=== PATIENT | male | born 1960 | race Caucasian/White ===

== ENCOUNTER 2025-07-23 15:58 | Outpatient (REF) | payer OTHER, SELFPAY ==
--- OUTSIDE RECORDS SUMMARY | 2025-07-23 15:15 | XMS_ITS | Encounter Summary ---
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 I have varsha andrade 10/29/[address] you li ve. Do you have problems with any of the following? None of the above 10/29/2024 Food Insecurity Answer Date Recorded Within the past 12 months, y ou worried that your food would run out before you got money to buy more: Never True 2024 Within the past 12 months,th e food you bought just didn't last and you didn't have enough money to get more: Sometimes True 10/29/2024 Transportation Answer Date Recorded In the past 12 months, has l ack of transportation kept you from medical appts, meetings, work or from getting things needed for daily living? No 10/29/2024 Utilities Answer Date Recorded In the past 12 months, has t he electric, gas, oil or water company threatened to shut off services in your home? No 10/29/2024 Depression Answer Date Recorded Patient Health Questionnaire-2 Score 0 10/29/2024 Internet Access Answer Date Recorded Internet Access Q1 Yes 10/29/2024 Internet Access Q2 Not on file 10/29/2024 Sex and Gender Information Value Date Recorded Sex Assigned at Male 08/07/2022 10:22 AM EDT Legal Sex Male 10:22 AM EDT Gender Identity Male 08/07/2022 10:22 AM EDT Sexual Orientation Straight 08/07/2022 10 :22 AM EDT documented as of this encounter Last Filed Vital Signs Vital Sign Reading Time Taken Comments Blood Pressure 133/80 07/23/2025 3:22 PM EDT Pulse 65 07/23/2025 3:22 PM EDT Temperature - - Respiratory Rate 20 07/23/2025 3:22 PM EDT Oxygen Saturation 98% 07/23/2025 3:22 PM EDT Inhaled Oxygen Concentration - - Weight 59.9 kg (132 lb) 07/23/2025 3:22 PM EDT Height 166.4 cm (5' 5.5 ) 07/23/2025 3:22 PM EDT Body Mass Index 21.63 07/23/2025 3:22 PM EDT documented in this encounter Plan of Treatment Upcoming Encounters Date Type Department Care Team (Late st Contact Info) Description 08/25/2025 11:15 AM EST Office Visit [facility] [address] [place] [address] Moiz Licea MD [address] [place] [address] 09/09/2025 4:00 PM EST Office Visit [facility] [address] [place] [address] Moiz Licea MD [address] [place] [address] Scheduled Orders Name Type Priority Associated Diagnoses Orde r Schedule Cologuard colon cancer screening Lab Routine Screening for colon cancer Expected: 07/23/2025 (Approximate), Expires: 07/23/2026 Hepatitis C Antibody with Reflex to HCV, RNA, Quantitative, Real-Time PCR Lab Routine Alcohol dependence in remission (CMS/HCC) (HCC) Chronic obstructive pulmonary disease, unspecified COPD type (CMS/HCC) (HCC) Primary hypertension Expected: 07/23/2025, Expires: 07/23/2026 HIV-1/2 Antigen and Antibodies, Fourth Generation, with Reflexes Lab Routine Seborrheic dermatitis Expected: 07/23/2025 (Approximate), Expires: 07/23/2026 documented as of this encounter Procedures Procedure Name Priority Date/Time Associated Diagnosis Comments TSH W/REFLEX TO FT4 Routine 07/23/2025 4 :01 PM EDT Alcohol dependence in remission (CMS/HCC) (HCC) Chronic obstructive pulmonary disease, unspecified COPD type (CMS/HCC) (HCC) Primary hypertension CBC WITH AUTO DIFFERENTIAL Routine 07/23/2025 4:01 PM EDT Alcohol dependence in remission (CMS/HCC) (HCC) Chronic obstructive pulmonary disease, unspecified COPD type (CMS/HCC) (HCC) Primary hypertension LIPID PANEL, STANDARD Routine 07/23/2025 4:01 PM EDT Alcohol dependence in remission (CMS/HCC) (HCC) Chronic obstructive pulmonary disease, unspecified COPD type (CMS/HCC) (HCC) Primary hypertension COMPREHENSIVE METABOLIC PANEL Routine 07/23/2025 4:01 PM EDT Alcohol dependence in remission (CMS/HCC) (HCC) Chronic obstructive pulmonary disease, unspecified COPD type (CMS/HCC) (HCC) Primary hypertension documented in this encounter Results * TSH with Reflex to Free T4 (07/23/2025 4:01 PM EDT) TSH reflex Free T4 1.25 0.32 - 4.0 uIU/mL [facility] Blood Venous blood specimen / Unknown 07/23/2025 4:01 PM EDT 07/23/2025 5:32 PM EDT us Moiz Licea MD LAB BLOOD ORDERABLES Final Result Performing Organization Address [facility] Co de Phone Number [facility] [address] [place] [address] [phone] * (ABNORMAL) Lipid Panel, Standard (07/23/2025 4:01 PM EDT) Triglycerides 88 <150 mg/dL [facility] Comment:Desirable Triglyceri de: less than 150 mg/dLBorderline High Triglyceride 150-199 mg/dLHigh Triglyceride: 200-499 mg/dLVery High Triglyceride: greater than or equal to 5OO mg/dL Cholesterol 205(H) <200 mg/dL [facility] Comment:Desirable Cholestero l: less than 200 mg/dLBorderline High Cholesterol: 200-239 mg/dLHigh Cholesterol: greater than 239 mg/dL LDL Cholesterol Calculated 123(H) <100 mg/dL [facility] Comment:Desirable LDL: less than 100 mg/dLNear Optimal/Above Optimal LDL: 110- 129 mg/dLBorderline High LDL: 130-159 mg/dLHigh LDL: 160-189 mg/dLVery High LDL: greater than or equal to 190 mg/dL HDL Cholesterol 65 >40 mg/dL [facility] Comment:Desirable HDL: great er than 40 mg/dL Note: This HDL assay may give artificially low results in patients with liver disease. Blood Venous blood specimen / Unknown 07/23/2025 4:01 PM EDT 07/23/2025 5:32 PM EDT us Moiz Licea MD LAB BLOOD ORDERABLES Final Result Performing Organization Address City/[facility]/ZIP Co de Phone Number [facility] [address] [place] [address] [phone] * (ABNORMAL) Comprehensive Metabolic Panel (07/23/2025 4:01 PM EDT) Sodium 142 135 - 145 mmol/L [facility] Potassium 4.2 3.3 - 5.1 mmol/L [facility] Chloride 111(H) 96 - 108 mmol/L [facility] Carbon Dioxide 24 22 - 29 mmol/L [facility] Anion Gap 11(L) 12 - 20 [facility] Urea Nitrogen (BUN) 20(H) 9 - 16 mg/dL [facility] Creatinine, Serum 1.22 0.5 - 1.4 mg/dL [facility] Estimated Glomerular Filt Rate 60 [facility] Comment:Chronic Kidney Disea se: Estimated GFR < 60 mL/min/[id number] Kidney Disease: Estimated GFR < 15 mL/min/1.73m2 Glucose 77 60 - 115 mg/dL [facility] Calcium 9.1 8.4 - 10.2 mg/dL [facility] Bilirubin, Total 0.3 0.0 - 1.0 mg/dL [facility] Aspartate Amino Transferase 31 5 - 37 U/L [facility] Alanine Aminotransferase 23 0 - 40 U/L [facility] Total Protein 6.7 6.5 - 8.0 g/dL [facility] Albumin Level 4.2 3.5 - 5.0 g/dL [facility] Alkaline Phosphatase 80 39 - 117 U/L [facility] Blood Venous blood specimen / Unknown 07/23/2025 4:01 PM EDT 07/23/2025 5:32 PM EDT us Moiz Licea MD LAB BLOOD ORDERABLES Final Result [facility] [address] [place] [address] [phone] * (ABNORMAL) CBC auto differential (07/23/2025 4:01 PM EDT) Pathologist [facility] White Blood Count 7.8 4.8 - 10.8 X10*3/uL [facility] Red Blood Count 4.42(L) 4.60 - 5.80 X10*6/uL [facility] Hemoglobin 13.6(L) 14.0 - 18.0 g/dl [facility] Hematocrit 40.8(L) 42.0 - 52.0 % [facility] Mean Corpuscular Volume 92.3 80.0 - 98.0 fL [facility] Mean Corpuscular Hemoglobin 30.8 27.0 - 33.0 pg [facility] Mean Corpuscular HGB Conc 33.3 31.0 - 36.0 g/dl [facility] Red Cell Distribution Width 12.7 11.0 - 16.0 % [facility] Platelet Count 226 160 - 400 X10*3/uL [facility] Mean Platelet Volume 10.8 9.4 - 12.4 fL [facility] Neutrophils Percent Auto 58.5 45 - 73 % [facility] Imm Gran Pct Auto 0.3 0.0 - 0.4 % [facility] Lymphocytes Percent Auto 32.4 20 - 40 % [facility] Monocytes Percent Auto 6.9 2 - 11 % [facility] Eosinophils Percent Auto 1.0 0 - 4 % [facility] Basophils Percent Auto 0.9 0 - 2 % [facility] NRBC Pct Auto 0.0 0.0 - 0.2 /100WBC [facility] Neutrophils Absolute Auto 4.6 2.0 - 8.3 x10*3/uL [facility] Imm Gran Abs Auto 0.02 0.00 - 0.03 X10*3/uL [facility] Lymphocytes Absolute Auto 2.5 1.2 - 4.9 X10*3/uL [facility] Monocytes Absolute Auto 0.5 0.1 - 1.2 X10*3/uL [facility] Eosinophils Absolute Auto 0.1 0.0 - 0.4 X10*3/uL [facility] Basophils Absolute Auto 0.1 0.0 - 0.2 X10*3/uL [facility] NRBC Abs Auto 0.000 0.0 - 0.012 X10*3/uL [facility] Blood Venous blood specimen / Unknown 07/23/2025 4:01 PM EDT 07/23/2025 5:32 PM EDT Moiz Licea MD LAB BLOOD ORDERABLES Final Result [facility] [address] [place] [address] [phone] documented in this encounter Visit Diagnoses Diagnosis Alcohol dependence in remission (CMS/HCC) (HCC)- Primary Chronic obstructive pulmonary disease, unspecified COPD type (CMS/HCC) (HCC) Primary hypertension Unspecified essential hypertension Screening for colon cancer Special screening for malignant neoplasms, colon Seborrheic dermatitis Unspecified seborrheic dermatitis Encounter for immunization documented in this encounter Additional Health Concerns Assessment Noted Time PHQ-9 Depression Total Score: 2 10/29/19 25 10:56 AM EST documented as of this encounter Care Teams Sleep Manager Relationship Specialty Start Date End Date Moiz Lciea MD [address] [place] [phone] PCP - General Internal Medicine 11/20/14 documented as of this encounter
[2025-07-23 17:37] LABS: MANUAL DIFF FLAG NO
[2025-07-23 17:48] LABS: Hematocrit 40.8 % (42.0-52.0); Hemoglobin 13.6 g/dl (14.0-18.0); Imm Gran Abs Auto 0.02 X10*3/uL (0.00-0.03); Imm Gran Pct Auto 0.3 % (0.0-0.4); Lymphocytes Absolute Auto 2.5 X10*3/uL (1.2-4.9); Mean Corpuscular HGB Conc 33.3 g/dl (31.0-36.0); Mean Corpuscular Hemoglobin 30.8 pg (27.0-33.0); Mean Corpuscular Volume 92.3 fL (80.0-98.0); NRBC Abs Auto 0.000 X10*3/uL (0.0-0.012); NRBC Pct Auto 0.0 /100WBC (0.0-0.2); Platelet Count 226 X10*3/uL (160-400); Red Blood Count 4.42 X10*6/uL (4.60-5.80); White Blood Count 7.8 X10*3/uL (4.8-10.8)
[2025-07-23 18:07] LABS: Alanine Aminotransferase 23 U/L (0-40); Albumin Level 4.2 g/dL (3.5-5.0); Alkaline Phosphatase 80 U/L (39-117); Anion Gap 11 (12-20); Aspartate Amino Transferase 31 U/L (5-37); Blood Urea Nitrogen 20 mg/dL (9-16); Calcium 9.1 mg/dL (8.4-10.2); Carbon Dioxide 24 mmol/L (22-29); Chloride 111 mmol/L (96-108); Cholesterol 205 mg/dL (<200); Estimated Glomerular Filt Rate 60; HDL Cholesterol 65 mg/dL (>40); Potassium 4.2 mmol/L (3.3-5.1); Sodium 142 mmol/L (135-145); Total Protein 6.7 g/dL (6.5-8.0); Triglycerides 88 mg/dL (<150)
--- OUTSIDE RECORDS SUMMARY | 2025-07-23 19:35 | XMS_ITS | Clinical Summary ---
Author Organization [facility] it Address [address] [place] [address] Care Team Providers Care Energy Analyst Name Role Phone Unavailable Primary Care Provider Unavailabl e Family History Medical History Relation Name Comments Blindness Neg Hx Cataracts Neg Hx Glaucoma Neg Hx Macular degeneration Neg Hx Strabismus Neg Hx Social History Tobacco Use Types Packs/Day Years Used Date Smoking Tobacco: Never Assessed Sex and Gender Information Value Date Recorded Sex Assigned at Not on file Legal Sex Male 3:32 AM EST Gender Identity Not on file Sexual Orientation Not on file Obstetrics History Plan of Treatment Health Maintenance Due Date Last Done Comments Colorectal Cancer Screening: Colonoscopy 1961 DTaP,Tdap,and Td Vaccines (1 - Tdap) 1980 Pneumococcal Vaccine: 50+ Ye ars (1 of 1 - PCV) 2011 Zoster Vaccines (1 of 2) 2011 Cholesterol Screening (Lipid Panel) 09/10/2022 HIV Screening 09/10/2022 Hepatitis C Screening 09/10/2022 Social Influencers of Health Screening 09/10/2022 Depression Screening 10/08/2024 COVID-19 Vaccine (1 - 2023-2 5 season) 2025 Influenza Vaccine (#1) 2025 RSV Immunization Adult Patie nts (1 - 1-dose 75+ series) 2036 HIB Vaccines Aged Out No longer eligi ble based on patient's age to complete this topic HPV Vaccines Aged Out No longer eligi ble based on patient's age to complete this topic Hepatitis A Vaccines Aged Out No long er eligible based on patient's age to complete this topic Hepatitis B Vaccines Aged Out No long er eligible based on patient's age to complete this topic IPV Vaccines Aged Out No longer eligi ble based on patient's age to complete this topic MMR Vaccines Aged Out No longer eligi ble based on patient's age to complete this topic Meningococcal ACWY Vaccine Aged Out N o longer eligible based on patient's age to complete this topic Meningococcal B Vaccine Aged Out No l onger eligible based on patient's age to complete this topic RSV Immunization Patients Un annmarie 20 months Aged Out No longer eligible b ased on patient's age to complete this topic Varicella Vaccines Aged Out No longer eligible based on patient's age to complete this topic
--- OUTSIDE RECORDS SUMMARY | 2025-07-23 19:35 | XMS_ITS | Encounter Summary ---
Author Organization [employer] Address [address] [facility] [address] [place] [address] Care Team Providers Care O And M Supervisor Name Role Phone Moiz Licea MD Primary Care Provider Encounter Details Date Type Department Care Team (Latest Contact Info) Description 08/07/2022 Abstract [facility]VERSION[facility] Dental, Provider, DDS Social History Tobacco Use Types Packs/Day Years Used Date Smoking Tobacco: Never Assessed Sex and Gender Information Value Date Recorded Sex Assigned at Male 08/07/2022 10:22 AM EDT Legal Sex Male 10:22 AM EDT Gender Identity Male 08/07/2022 10:22 AM EDT Sexual Orientation Straight 08/07/2022 10 :22 AM EDT documented as of this encounter Plan of Treatment Upcoming Encounters Date Type Department Care Team (Late st Contact Info) Description 08/25/2025 11:15 AM EST Office Visit [facility] [address] [place] [address] Moiz Licea MD [address] [place] [address] 09/09/2025 4:00 PM EST Office Visit [facility] [address] [place] [address] Moiz Licea MD [address] [place] [address] documented as of this encounter Visit Diagnoses Not on filedocumented in this encounter Care Teams O And M Supervisor Relationship Specialty Start Date End Date Moiz Licea MD [address] [place] [address] PCP - General Internal Medicine 11/20/14 documented as of this encounter
--- OUTSIDE RECORDS SUMMARY | 2025-07-23 19:35 | XMS_ITS | Encounter Summary ---
Author Organization [employer] Address [address] [facility] [address] [place] [address] Care Team Providers Care Audit Director Name Role Phone Moiz Licea MD Primary Care Provider [phone] Encounter Details Date Type Department Care Team (Latest Contact Info) Description 09/17/2019 Abstract [facility] CONVERSION[facility] Dental, Provider, DDS Social History [...] 11:15 AM EST Office Visit [facility] [address] [place] [address] Moiz Licea MD [address] [place] [address] 09/09/2025 4:00 PM EST Office Visit [facility] [address] [place] [address] Moiz Licea MD [address] [place] [address] documented as of this encounter Visit Diagnoses Not on filedocumented in this encounter Care Teams Audit Director Relationship Specialty Start Date End Date Moiz Licea MD [address] [place] [address] PCP - General Internal Medicine 11/20/14 documented as of this encounter
--- OUTSIDE RECORDS SUMMARY | 2025-07-23 19:35 | XMS_ITS | Encounter Summary ---
Author Organization [employer] Address [address] [facility] [address] [place] [address] Care Team Providers Care Fisher Eel Spear Name Role Phone Moiz Licea MD Primary Care Provider [phone]- [phone] Reason for Visit * Reason Onset Date Comments Nurse Triage 2024 Encounter Details Date Type Department Care Team (Late st Contact Info) Description 2024 Telephone [facility] [address] [place] [address] Moiz Licea MD [address] [place], [place] [phone] Nurse Triage Social History Tobacco Use Types Packs/Day Years Used Date Smoking Tobacco: Every Day Cigarettes 0.5 36 Smokeless Tobacco: Never Depression Answer Date Recorded Patient Health Questionnaire-9 Score 13 09/27/2023 Patient Health Questionnaire-9 Score 13 09/27/2023 Last PHQ-9: Questionnaire Data Not on file 1 11/28/2022 Housing Stability Answer Date Recorded What is your housing situation today? I have varsha andrade 08/06/[address] you li ve. Do you have problems with any of the following? None of the above 08/06/2023 Food Insecurity Answer Date Recorded Within the past 12 months, y ou worried that your food would run out before you got money to buy more: Never True 09/27/2023 Within the past 12 months,th e food you bought just didn't last and you didn't have enough money to get more: Never True Transportation Answer Date Recorded In the past 12 months, has l ack of transportation kept you from medical appts, meetings, work or from getting things needed for daily living? No 09/27/2023 Utilities Answer Date Recorded In the past 12 months, has t he electric, gas, oil or water company threatened to shut off services in your home? Yes 09/27/2023 Depression Answer Date Recorded Patient Health Questionnaire-2 Score 3 09/27/2023 Sex and Gender Information Value Date Recorded Sex Assigned at Male 08/07/2022 10:22 AM EDT Legal Sex Male 10:22 AM EDT Gender Identity Male 08/07/2022 10:22 AM EDT Sexual Orientation Straight 08/07/2022 10 :22 AM EDT documented as of this encounter Miscellaneous Notes * Telephone Encounter - Stephanie Arthur RN - 2024 9:59 AM EDT Triage call Pt reports lethargy, cough, headache, body aches, nasal congestion/drainage, no taste since 05/12/24. Pt reports having no energy to do anything,. Pt is without vehicle and no one at home .Pt does not have Covid home test available. Pt denies fever at this time. Pt is advised if fever of103 or higher, difficulty breathing with chest pain/pressure must go to ED for evaluation and Pt agrees but, denies these symptoms. Pt does have hx of COPD and emphysema. Pt has taken advil for the headache without effect. Pt agrees to be seen by [facility] today. Request for visit submitted to [facility] and received. Pt insurance is verified as active. Pt agrees with disposition. Protocol Used: COVID-19 - Diagnosed or Suspected (Adult) Protocol-Based Disposition: Home Care Positive Triage Question: * COVID-19 infection suspected by caller or triager and mild symptoms (cough, fever, or others) andhas not gotten tested yet * All higher-acuity triage questions were negative Care Advice Discussed: * Reassurance and Education - Suspected COVID-19 and Testing Needed * General Care Advice for COVID-19 Symptoms * Cough Medicines * Humidifier * Coughing Spells * Pain and Fever Medicines * Reasons To Call Back - Fever over 103 F (39.4 C) - Fever lasts over 3 days - Fever returns after being gone for 24 hours - Chest pain or difficulty breathing occurs - You become worse * Telephone Encounter - Esha Pham - 2024 8:58 AM EDT Symptoms: Body Aches, Headache, Cough, Breathing Trouble Outcome: Schedule an urgent appointment (within 1 hour) or talk to a nurse or provider soon Reason: Caller denied all higher acuity questions The caller accepted this outcome documented in this encounter Plan of Treatment Upcoming Encounters Date Type Department Care Team (Late st Contact Info) Description 08/25/2025 11:15 AM EST Office Visit [facility] [address] [place] [address] Moiz Licea MD [address] [place] [address] 09/09/2025 4:00 PM EST Office Visit [facility] [address] [place] [address] Moiz Licea MD [address] [place] [address] documented as of this encounter Visit Diagnoses Not on filedocumented in this encounter Additional Health Concerns Assessment Noted Time PHQ-9 Depression Total Score: 13 023 2:22 PM EST documented as of this encounter Care Teams Fisher Eel Spear Relationship Specialty Start Date End Date Moiz Licea MD [address] [place] [address] PCP - General Internal Medicine 11/20/14 documented as of this encounter
--- OUTSIDE RECORDS SUMMARY | 2025-07-23 19:35 | XMS_ITS | Encounter Summary ---
Author Organization [employer] Address [address] [facility] [address] [place] [address] Care Team Providers Care Director Home Name Role Phone Moiz Licea MD Primary Care Provider [phone]- [phone] Encounter Details Date Type Department Care Team (Late st Contact Info) Description 09/24/2024 Orders Only [facility] [address] [place], [place] [phone] Moiz Licea MD [address] [place], [place] [phone] Alcohol dependence in remission (CMS/HCC) (Primary Dx) Social History Tobacco Use Types Packs/Day Years [...] 08/25/2025 11:15 AM EST Office Visit [facility] [address] [place] [address] Moiz Licea MD [address] [place] [address] 09/09/2025 4:00 PM EST Office Visit [facility] [address] [place] [address] Moiz Licea MD [address] [place] [address] documented as of this encounter Visit Diagnoses Diagnosis Alcohol dependence in remission (CMS/HCC) (HCC)- Primary documented in this encounter Additional Health Concerns Assessment Noted Time PHQ-9 Depression Total Score: 13 023 2:22 PM EST documented as of this encounter Care Teams Director Home Relationship Specialty Start Date End Date Moiz Licea MD [address] [place] [address] PCP - General Internal Medicine 11/20/14 documented as of this encounter
--- OUTSIDE RECORDS SUMMARY | 2025-07-23 19:35 | XMS_ITS | Encounter Summary ---
Author Organization [employer] [facility] Address [address] [facility] [address] [place] [address] Care Team Providers Care Tool Filer Name Role Phone Moiz Licea MD Primary Care Provider Encounter Details Date Type Department Care Team (Late st Contact Info) Description 09/18/2022 Abstract [facility] [address] [place] [address] Dental, Provider, DDS Social History Tobacco Use [...] Description 08/25/2025 11:15 AM EST Office Visit [facility] PEDS [address] [place] [address] Moiz Licea MD [address] [place] [address] 09/09/2025 4:00 PM EST Office Visit [facility]ED[facility] [address] [place] [address] Moiz Licea MD [address] [place] [address] documented as of this encounter Visit Diagnoses Not on filedocumented in this encounter Care Teams Tool Filer Relationship Specialty Start Date End Date Moiz Licea MD [address] [place] [address] PCP - General Internal Medicine 11/20/14 documented as of this encounter
--- OUTSIDE RECORDS SUMMARY | 2025-07-23 19:36 | XMS_ITS | Encounter Summary ---
Author Organization [employer] Address [address] [facility] [address] [place] [address] Care Team Providers Care Assurance Specialist Name Role Phone Moiz Licea MD Primary Care Provider [phone] Reason for Visit * Reason Onset Date Comments Nurse Triage 04/06/2023 Encounter Details Date Type Department Care Team (Late st Contact Info) Description 04/06/2023 Telephone [facility] [address] [place], [place] [phone] Moiz Licea MD [address] [place] [address] Nurse Triage Social History Tobacco Use Types Packs/Day Years Used Date Smoking Tobacco: Every Day Cigarettes 0.5 36 Smokeless Tobacco: Never Depression Answer Date Recorded Patient Health Questionnaire-9 Score 18 01/16/2023 Depression Answer Date Recorded Patient Health Questionnaire-2 Score 4 01/16/2023 Sex and Gender Information Value Date Recorded Sex Assigned at Male 08/07/2022 10:22 AM EDT Legal Sex Male 10:22 AM EDT Gender Identity Male 08/07/2022 10:22 AM EDT Sexual Orientation Straight 08/07/2022 10 :22 AM EDT documented as of this encounter Miscellaneous Notes * Telephone Encounter - Kanchan Vee RN - 04/11/2023 2:04 PM EDT Call to pt to inform that Rx for antabuse sent . Per pt just had meds delievered. Pt advised sent to [facility]. Pt wants Rx sent to [facility] pharamcy so that it may be delivered. Pt advised will send to PCP to resend to [facility] pharmacy. * Telephone Encounter - Jamie Luna RN - 04/06/2023 2:06 PM EDT Please see triage message below and advise as needed. * Telephone Encounter - Ina Kruse RN - 04/06/2023 1:46 PM EDT called pt to triage, spoke to pt. pt states has been binging for about a week now and requesting antibuse. pt was this in February and has a couple of pills left and is going to restart the vitamins he was given as well. pt speaking slightly slurred and states drank all night last night, just woke up. offered appt Sunday, declined. looking in his chart, pt has been seen by PCP for Derm but not for anything else since October. pt requesting appt next week, and advised [facility] and to call early in the morning that day to schedule an open appt. pt states every time he calls, he waits hours to get through. advised to try early in the morning as it may be a little easier to get through. pt understands and agrees with plan. insurance verified. willtask to team nurses to follow up as needed. Protocol Used: Alcohol Use and Problems (Adult) Protocol-Based Disposition: Home Care Positive Triage Question: * Alcohol intoxication and sobering up, questions about * All higher-acuity triage questions were negative Care Advice Discussed: * Reassurance and Education - Alcohol Use and Unhealthy Use * Do NOT Drink and Drive * What Is the Effect of Drinking Alcohol on the Blood Alcohol Level? * Reasons To Call Back - You become worse * Telephone Encounter - Birdie Wayne - 04/06/2023 1:15 PM EDT Symptom: Substance Use Concerns (alcohol) Outcome: Schedule an urgent appointment (within 1 hour) or talk to a nurse or provider soon Reason: Getting worse, states he wants to get treated and would like to get back on antabuse medication The caller accepted this outcome Please contact pt at [phone] documented in this encounter Plan of Treatment Upcoming Encounters Date Type Department Care Team ([facility] st Contact Info) Description 08/25/2025 11:15 AM EST Office Visit [facility] [address] [place] [address] Moiz Licea MD [address] [place] [address] 09/09/2025 4:00 PM EST Office Visit [facility] [address] [place] [address] Moiz Licea MD [address] [place] [address] documented as of this encounter Visit Diagnoses Diagnosis 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
--- OUTSIDE RECORDS SUMMARY | 2025-07-23 19:36 | XMS_ITS | Encounter Summary ---
Author Organization [employer] Address [address] [facility] [address] [place] [address] Care Team Providers Care Court Reporter Name Role Phone Moiz Licea MD Primary Care Provider [phone] Reason for Visit * Reason Onset Date Comments Appointment Request 06/29/2025 Encounter Details Date Type Department Care Team (Late st Contact Info) Description 06/29/[address] [facility] [address] [place] [address] Moiz Licea MD [address] [place], [place] [phone] Appointment Request Social History Tobacco Use Types Packs/Day Years Used Date Smoking Tobacco: Every Day Cigarettes 0.5 36 Smokeless Tobacco: Never Depression Answer Date Recorded Patient Health Questionnaire-9 Score 2 10/29/2024 Patient Health Questionnaire-9 Score 2 10/29/2024 Last PHQ-9: Questionnaire Data Not on file 0 10/29/2024 Housing Stability Answer Date Recorded What is your housing situation today? I have varsha raymond 10/29/[address] you li [...] encounter Miscellaneous Notes * Telephone Encounter - Mark Jennings - 06/29/2025 11:45 AM EDT Pt looking to scheduling Derm visit with Dr Licea documented in this encounter Plan of Treatment Upcoming Encounters Date Type Department Care Team (Late st Contact Info) Description 08/25/2025 11:15 AM EST Office Visit [facility] [address] [place] [address] Moiz Licea MD [address] [place] [address] 09/09/2025 4:00 PM EST Office Visit [facility] [address] [place] [address] Moiz Licea MD [address] [place] [address] documented as of this encounter Visit Diagnoses Not on filedocumented in this encounter Additional Health Concerns Assessment Noted Time PHQ-9 Depression Total Score: 2 10/29/19 25 10:56 AM EST documented as of this encounter Care Teams Court Reporter Relationship Specialty Start Date End Date Moiz Licea MD [address] [place] [address] PCP - General Internal Medicine 11/20/14 documented as of this encounter
--- OUTSIDE RECORDS SUMMARY | 2025-07-23 19:36 | XMS_ITS | Encounter Summary ---
Author Organization [employer] Address [address] [facility] [address] [place] [address] Care Team Providers Care Chemical Processing Technician Name Role Phone Moiz Licea MD Primary Care Provider [phone] Encounter Details Date Type Department Care Team (Latest Contact Info) Description 07/23/2025 Travel Social History Tobacco Use Types Packs/Day Years Used Date Smoking Tobacco: Every Day Cigarettes 0.5 36 Smokeless Tobacco: Never Depression Answer Date Recorded Patient Health Questionnaire-9 Score 2 10/29/2024 Patient Health Questionnaire-9 Score 2 10/29/2024 Last PHQ-9: Questionnaire Data Not on file 0 10/29/2024 Housing Stability Answer Date Recorded What is your housing situation today? I have varsha sing 10/29/[address] you li [...] Description 08/25/2025 11:15 AM EST Office Visit [facility] [address] [place] [address] Moiz Licea MD [address] [place] [address] 09/09/2025 4:00 PM EST Office Visit [facility] [address] [place] [address] Moiz Licea MD [address] [place] [address] documented as of this encounter Visit Diagnoses Not on filedocumented in this encounter Additional Health Concerns Assessment Noted Time PHQ-9 Depression Total Score: 2 10/29/19 25 10:56 AM EST documented as of this encounter Care Teams Chemical Processing Technician Relationship Specialty Start Date End Date Moiz Licea MD [address] [place] [phone] PCP - General Internal Medicine 11/20/14 documented as of this encounter
--- OUTSIDE RECORDS SUMMARY | 2025-07-23 19:36 | XMS_ITS | Encounter Summary ---
Author Organization [employer] Address [address] [facility] [address] [place] [address] Care Team Providers Care Cement Side Laster Name Role Phone Moiz Licea MD Primary Care Provider [phone] Reason for Visit * Reason Onset Date Comments Chart Prep 07/22/2025 Encounter Details Date Type Department Care Team ([facility] st Contact Info) Description 07/22/2025 Telephone [facility] [address] [place] [address] Moiz Licea MD [address] [place] [address] Chart Prep Social History Tobacco Use Types Packs/Day Years [...] encounter Miscellaneous Notes * Telephone Encounter - Dana Matos [place] - 07/22/2025 11:39 AM EDT Chart Prep Labs: not done Images: not applicable Referrals: not applicable Vaccines due: Covid, Flu, PCV20, Tdap, RSV, and Zoster Screenings: colonoscopy and STI screening Overdue care gaps: Oral health screening, Disability screen, and Tobacco documented in this encounter Plan of Treatment Upcoming Encounters Date Type Department Care Team (Late st Contact Info) Description 08/25/2025 11:15 AM EST Office Visit [facility] [address] [place] [address] Moiz Licea MD [address] [place] [address] 09/09/2025 4:00 PM EST Office Visit [facility] [address] [place] [address] Moiz Licea MD [address] [place] [address] documented as of this encounter Visit Diagnoses Not on filedocumented in this encounter Additional Health Concerns Assessment Noted Time PHQ-9 Depression Total Score: 2 10/29/19 25 10:56 AM EST documented as of this encounter Care Teams Cement Side Laster Relationship Specialty Start Date End Date Moiz Licea MD [address] [place] [id number] PCP - General Internal Medicine 11/20/14 documented as of this encounter
--- OUTSIDE RECORDS SUMMARY | 2025-07-23 19:36 | XMS_ITS | Clinical Summary ---
Author Organization [employer] Address [address] [facility] [address] [place] [address] Care Team Providers Care Circular Saw Filer Name Role Phone Moiz Licea MD Primary Care Provider [phone] Allergies No known active allergies Medications * This document contains information received from the source organization and may not represent a complete record from that organization. cyanocobalamin (Vitamin B-12) 1000 MCG/ML injection inject 1 milliliter by intramuscular route once a month 08/20/20 17 Active phenylephrine 0.25% 0.25-14-74.9 % ointment Use topically QID in affected area 11/17/19 22 Active COVID-19 At Home Antigen Test (QuickVue At-Home Covid-19 Test) kit use tst as directed 10/20/19 22 Active carbamide peroxide (Debrox) 6.5 % otic solutionIndicati ons:Bilateral impacted cerumen Administer 5 drops into each ear in the morning and at bedtime. 15 mL 09/22/20 22 Active Additional Information Patient not taking.Reported on 01/04/2023 triamcinolone (Kenalog) 0.1 % creamIndications :Xerosis of skin Apply topically if needed in the morning and at bedtime (pain and swelling). 453.6 g 2 10/31/19 23 Active loratadine (Claritin) 10 MG tablet Take 1 tablet (10 mg) by mouth in the morning. 30 tablet 3 01/17/20 23 Active tamsulosin (Flomax) 0.4 MG 24 hr capsuleIndicatio ns:Nocturia Take 1 capsule (0.4 mg) by mouth in the morning. 30 capsule 11 09/27/20 23 Active Blood Pressure kitIndications:E levated BP without diagnosis of hypertension To check the BP daily 1 kit 09/27/20 23 Active disulfiram (Antabuse) 250 MG tablet TAKE 1 TABLET (250 MG) BY MOUTH IN THE MORNING 30 tablet 1 06/16/20 24 Active acamprosate (Campral) 333 MG EC tabletIndication s:Alcohol dependence in remission (CMS/HCC) ([facility]) Take 2 tablets (666 mg) by mouth 2 times daily. Do not crush, chew, or split. 120 tablet 2 09/24/20 24 Active disulfiram (Antabuse) 250 MG tabletIndication s:Alcohol dependence in remission (CMS/HCC) ([facility]) Take 1 tablet (250 mg) by mouth Once per day. 30 tablet 11 12/24/19 25 026 Active Blood Pressure kitIndications:P rimary hypertension To check the BP daily 1 kit 12/24/19 25 Active thiamine (Vitamin B-1) 100 MG tabletIndication s:Alcohol dependence in remission (CMS/HCC) ([facility]) Take 1 tablet (100 mg) by mouth in the morning. 90 tablet 1 04/24/20 25 Active disulfiram (Antabuse) 250 MG tabletIndication s:Alcohol dependence in remission (CMS/HCC) ([facility]) TAKE 1 TABLET (250 MG) BY MOUTH IN THE MORNING 30 tablet 2 04/24/20 25 Active albuterol 108 (90 Base) MCG/ACT inhalerIndicatio ns:Chronic obstructive pulmonary disease, unspecified COPD type (CMS/HCC) ([facility]) INHALE 2 PUFFS BY MOUTH EVERY 4 HOURS IF NEEDED FOR WHEEZING. 18 g 11 05/04/20 25 Active cyanocobalamin (Vitamin B-12) 1000 MCG tablet Take 1 tablet (1,000 mcg) by mouth Once per day. 30 tablet 5 05/18/20 25 Active ketoconazole (NIZOral) 2 % shampooIndicatio ns:Seborrheic dermatitis Apply topically 2 (two) times a week. 120 mL 1 07/23/20 25 Active Active Problems Problem Noted Date Diagnosed Date Smoking 10/29/2024 Primary hypertension 10/29/2024 Actinic keratosis 10/29/2024 Drug dependence ([facility]/HCC) 02/16/2014 Alcohol dependence 01/27/2014 Assessment & Plan (01/04/2023 11:25 AM EDT): Patient has been dealing chronically with alcohol dependace for over 20 yrs, he was drinking vodka daily last was 3 days ago, no withdrawal symptoms, will provide folic acid/thiamine and disulfiram, he is interested in AUD program, [facility] Mental health problem 01/27/2014 Backache 04/19/2012 Chronic obstructive lung disease 01/23/2010 Mood disorder 04/19/2009 Encounters Date Type Department Care Team Description 07/23/2025 3:15 PM EDT Office Visit [facility] [address] [place] [address] Moiz Licea MD Alcohol dependence in remission (CMS/HCC) (HCC) (Primary Dx); Chronic obstructive pulmonary disease, unspecified COPD type (CMS/HCC) (HCC); Primary hypertension; Screening for colon cancer; Seborrheic dermatitis; Encounter for immunization 07/23/2025 Travel 07/22/2025 Telephone [facility] [address] [place] [address] Moiz Licea MD Chart Prep 06/29/2025 Telephone [facility] [address] [place] [address] Moiz Licea MD Appointment Request 05/18/2025 Refill [facility] [address] [place] [address] Moiz Licea MD 05/03/2025 Refill [facility] [address] [place] [address] Moiz Licea MD Chronic obstructive pulmonary disease, unspecified COPD type (CMS/HCC) 04/24/2025 4:00 PM EDT Office Visit [facility] [address] [place] [address] Moiz Licea MD Primary hypertension (Primary Dx); Alcohol dependence in remission (CMS/HCC); Actinic keratosis 04/24/2025 Travel from Last 3 Months Immunizations Immunization Administration Dates Next Due Tdap 07/23/2025 Social History Tobacco Use Types Packs/Day Years Used Date Smoking Tobacco: Every Day Cigarettes 0.5 36 Smokeless Tobacco: Never Tobacco Cessation:Ready to Q uit: Not Asked; Counseling Given: Not Answered Depression Answer Date Recorded Patient Health Questionnaire-9 [...] Orientation Straight 08/07/2022 10 :22 AM EDT Last Filed Vital Signs Vital Sign Reading Time Taken Comments Blood Pressure 133/80 07/23/2025 3:22 PM EDT Pulse 65 07/23/2025 3:22 PM EDT Temperature 36.4 C (97.6 F) 04/24/2025 4:10 PM EDT Respiratory Rate 20 07/23/2025 3:22 PM EDT Oxygen Saturation 98% 07/23/2025 3:22 PM EDT Inhaled Oxygen Concentration - - Weight 59.9 kg (132 lb) 07/23/2025 3:22 PM EDT Height 166.4 cm (5' 5.5 ) 07/23/2025 3:22 PM EDT Body Mass Index 21.63 07/23/2025 3:22 PM EDT Plan of Treatment Upcoming Encounters Date Type Department Care Team (Late st Contact Info) Description 08/25/2025 11:15 AM EST Office Visit [facility] [address] [place] [address] Moiz Licea MD [address] [place] [address] 09/09/2025 4:00 PM EST Office Visit [facility] [address] [place] [address] Moiz Licea MD [address] [place] [address] Health Maintenance Due Date Last Done Comments CT Colonography 1961 FIT DNA/Cologuard 1961 FIT 1961 FOBT 1961 HIV Screening 1961 Lipid Panel 1961 07/23/2025 Sigmoidoscopy 1961 Hepatitis C Screening 1979 Zoster Vaccines (1 of 2) 2011 RSV Patients and Patients Aged 60 years or older (1 - Risk 60-74 years 1-dose series) 2021 Dental X-Ray: Full Mouth 09/18/2022 09/17/2019 Dental Oral Exam 02/05/2023 08/07/2022, 08/2019, 09/17/2019, Additional history exists Dental Prophylaxis 02/05/2023 08/07/2022 Colonoscopy 05/08/2023 05/08/2013 Colorectal Cancer Screening 05/08/2023 Dental X-Ray: Bitewings 08/08/2023 08/07/20, 09/17/2019, 01/27/2014 COVID-19 Vaccine ( season) 2025 Alcohol/Substance Use Screening 10/29/2025 10/29/2024 Depression Screening 10/29/2025 10/29/2024, 10/29/19 25 SDOH Screening 10/29/2025 10/29/2024 Influenza Vaccine (#1) 2026 Postp oned from 06/08/2025 (Patient Refused) Disability Screening 07/23/2026 07/23/2025 Pneumococcal Vaccine: 50+ Years (1 of 2 - PCV) 07/23/2026 Postponed from 1980 (Patient Refused) Tobacco Screening 07/23/2026 07/23/2025 DTaP/Tdap/Td Vaccines (2 - Td or Tdap) 07/23/2035 07/23/2025 HIB Vaccines Aged Out No longer eligi [...] patient's age to complete this topic Meningococcal Vaccine Aged Out No nishant antione eligible based on patient's age to complete this topic RSV under 20 months Aged Out No longe r eligible based on patient's age to complete this topic Rotavirus Vaccines Aged Out No longer eligible based on patient's age to complete this topic Procedures Procedure Name Priority Date/Time Associated Diagnosis [...] unspecified COPD type (CMS/HCC) (HCC) Primary hypertension CRYOTHERAPY SKIN LESION Routine 04/24/2025 4:55 PM EDT Actinic keratosis PROPHYLAXIS - ADULT Routine 08/07/2022 1 2:00 AM EDT BITEWINGS - 4 RADIOGRAPHIC IMAGES Routine 08/07/2022 12:00 AM EDT PERIODIC ORAL EVALUATION - ESTABLISHED PATIENT Routine 08/07/2022 12:00 AM EDT INTRAORAL - COMPLETE SERIES OF RADIOGRAPHIC IMAGES Routine 09/17/2019 12:00 AM EST HM COLONOSCOPY Routine 05/08/2013 from Last 3 Months or Most Recently Relevant to Health Maintenance Results * TSH with Reflex to Free T4 (07/23/2025 4:01 PM EDT) TSH reflex Free T4 1.25 0.32 - 4.0 uIU/mL [facility] Blood Venous blood specimen / Unknown 07/23/2025 4:01 PM EDT 07/23/2025 5:32 PM EDT us Moiz Licea MD LAB BLOOD ORDERABLES Final Result [facility] [address] [place] [phone] * (ABNORMAL) CBC auto differential (07/23/2025 4:01 PM EDT) White Blood Count 7.8 4.8 - 10.8 X10*3/uL [facility] Red Blood Count 4.42(L) 4.60 - 5.80 X10*6/uL [facility] Hemoglobin 13.6(L) 14.0 - 18.0 g/dl [facility] Hematocrit 40.8(L) 42.0 - 52.0 % [facility] Mean Corpuscular Volume 92.3 80.0 - 98.0 fL [facility] Mean Corpuscular Hemoglobin 30.8 27.0 - 33.0 pg [facility] Mean Corpuscular HGB Conc 33.3 31.0 - 36.0 g/dl [facility] Red Cell Distribution Width 12.7 11.0 - 16.0 % [facility] Platelet Count 226 160 - 400 X10*3/uL [facility] Mean Platelet Volume 10.8 9.4 - 12.4 fL [facility] Neutrophils Percent Auto 58.5 45 - 73 % [facility] Imm Gran Pct Auto 0.3 0.0 - 0.4 % [facility] Lymphocytes Percent Auto 32.4 20 - 40 % [facility] Monocytes Percent Auto 6.9 2 - 11 % [facility] Eosinophils Percent Auto 1.0 0 - 4 % [facility] Basophils Percent Auto 0.9 0 - 2 % [facility] NRBC Pct Auto 0.0 0.0 - 0.2 /100WBC [facility] Neutrophils Absolute Auto 4.6 2.0 - 8.3 x10*3/uL [facility] Imm Gran Abs Auto 0.02 0.00 - 0.03 X10*3/uL [facility] Lymphocytes Absolute Auto 2.5 1.2 - 4.9 X10*3/uL [facility] Monocytes Absolute Auto 0.5 0.1 - 1.2 X10*3/uL [facility] Eosinophils Absolute Auto 0.1 0.0 - 0.4 X10*3/uL [facility] Basophils Absolute Auto 0.1 0.0 - 0.2 X10*3/uL [facility] NRBC Abs Auto 0.000 0.0 - 0.012 X10*3/uL [facility] Blood Venous blood specimen / Unknown 07/23/2025 4:01 PM EDT 07/23/2025 5:32 PM EDT Moiz Licea MD LAB BLOOD ORDERABLES Final Result Performing Organization Address City/[facility]/ZIP Co de Phone Number [facility] [address] [place] [phone] * (ABNORMAL) Lipid Panel, Standard (07/23/2025 4:01 PM EDT) Triglycerides 88 <150 mg/dL [facility] Comment:Desirable Triglyceri de: less than 150 mg/dLBorderline High Triglyceride 150-199 mg/dLHigh Triglyceride: 200-499 mg/dLVery High Triglyceride: greater than or equal to 5OO mg/dL Cholesterol 205(H) <200 mg/dL [facility] Comment:Desirable Cholestero l: less than 200 mg/dLBorderline High Cholesterol: 200-239 mg/dLHigh Cholesterol: greater than 239 mg/dL LDL Cholesterol Calculated 123(H) <100 mg/dL [facility] Comment:Desirable LDL: less than 100 mg/dLNear Optimal/Above Optimal LDL: 110- 129 mg/dLBorderline High LDL: 130-159 mg/dLHigh LDL: 160-189 mg/dLVery High LDL: greater than or equal to 190 mg/dL HDL Cholesterol 65 >40 mg/dL [facility] Comment:Desirable HDL: great er than 40 mg/dL Note: This HDL assay may give artificially low results in patients with liver disease. Blood Venous blood specimen / Unknown 07/23/2025 4:01 PM EDT 07/23/2025 5:32 PM EDT Moiz Licea MD LAB BLOOD ORDERABLES Final Result Performing Organization Address City/[facility]/ZIP Co de Phone Number [facility] [address] [place] [phone] * (ABNORMAL) Comprehensive Metabolic Panel (07/23/2025 4:01 PM EDT) Sodium 142 135 - 145 mmol/L [facility] Potassium 4.2 3.3 - 5.1 mmol/L [facility] Chloride 111(H) 96 - 108 mmol/L [facility] Carbon Dioxide 24 22 - 29 mmol/L [facility] Anion Gap 11(L) 12 - 20 [facility] Urea Nitrogen (BUN) 20(H) 9 - 16 mg/dL [facility] Creatinine, Serum 1.22 0.5 - 1.4 mg/dL [facility] Estimated Glomerular Filt Rate 60 [facility] Comment:Chronic Kidney Disea se: Estimated GFR < 60 mL/min/1.49n3Ahnbcb Kidney Disease: Estimated GFR < 15 mL/min/1.73m2 Glucose 77 60 - 115 mg/dL [facility] Calcium 9.1 8.4 - 10.2 mg/dL [facility] Bilirubin, Total 0.3 0.0 - 1.0 mg/dL [facility] Aspartate Amino Transferase 31 5 - 37 U/L [facility] Alanine Aminotransferase 23 0 - 40 U/L [facility] Total Protein 6.7 6.5 - 8.0 g/dL [facility] Albumin Level 4.2 3.5 - 5.0 g/dL [facility] Alkaline Phosphatase 80 39 - 117 U/L [facility] Blood Venous blood specimen / Unknown 07/23/2025 4:01 PM EDT 07/23/2025 5:32 PM EDT us Moiz Licea MD LAB BLOOD ORDERABLES Final Result Performing Organization Address City/State/[facility] Co de Phone Number [facility] [address] [place] [phone] * Cryotherapy, skin lesion (04/24/2025 4:55 PM EDT) Narrative Moiz Licea MD - 04/24/2025 4:55 PM EDT Moiz Licea MD 04/24/2025 4:57 PM Cryotherapy, skin lesion Date/Time: 04/24/2025 4:55 PM Performed by: Moiz Licea MD Authorized by: Moiz Licea MD Consent: Consent obtained: Written Procedure risks and benefits discussed: Yes Patient questions answered: No Patient agrees, verbalizes understanding, and wants to proceed: No Educational handouts given: No Instructions and paperwork completed: Yes Wilmot protocol: Procedure explained and questions answered to patient or proxy's satisfaction: yes Relevant documents present and verified: no Test results available: no Imaging studies available: no Required blood products, implants, devices, and special equipment available: no Site/side marked: no Immediately prior to procedure, a time out was called: yes Patient identity confirmed: Verbally with patient Indications: Indications: Actinic keratosis Sedation: Sedation type: None Anesthesia: Anesthesia method: None Procedure specific details: Cryotherapy as per protocol of the 2 lesions of the right cheek Post-procedure details: Procedure completion: Tolerated well, no immediate complications Moiz Licea MD DERM PROCEDURE ORDERABLES F inal Result * Colonoscopy (05/08/2013) Colonoscopy Normal Normal Narrative Lindy Sanchez - 05/08/2013 Recommended 10 year follow up Historical Provider HEALTH MAINTENANCE Final Result from Last 3 Months or Most Recently Relevant to Health Maintenance Insurance [facility] CARE < 65 [place] [id number] [facility] Care Teams Circular Saw Filer Relationship Specialty Start Date End Date Moiz Licea MD [address] [place] [address] [place] [phone] PCP - General Internal Medicine 11/20/14
[2025-07-24 03:49] LABS: HIV Num 1 0.08 S/CO (0.00-0.99); ~HepC Num1 0.11 S/CO (0.00-0.79); ~Hepatitis C Antibody Nonreactive (Nonreactive)
== END 2025-07-23 15:59 | disposition home or self-care (01) ==
LOC: HO.CHCLDS 15:58
PROVIDERS: Visit Provider Internal Medicine
DX: J44.9 Chronic obstructive pulmonary disease, unspecified (principal); L21.9 Seborrheic dermatitis, unspecified; I10 Essential (primary) hypertension; F10.21 Alcohol dependence, in remission
CPT/HCPCS: 36415; 80053; 80061; 84443; 85025; 86803; 87389